=== PATIENT | male | born 1965 | race Caucasian/White ===

== ENCOUNTER 2018-11-10 04:04 | Emergency (ER) | payer OTHER ==
[~2018-11-10] VITALS: Ht 185.4 cm; Wt 110.4 kg
[2018-11-10 04:09] VITALS: Ht 185.4 cm; Wt 110.4 kg
[2018-11-10 05:57] VITALS: BP 165/103
== END 2018-11-10 05:57 | disposition home or self-care (01) ==
LOC: ED 04:04
DX: M54.5 Low back pain (principal); I10 Essential (primary) hypertension; G89.29 Other chronic pain; W45.8XXA Other foreign body or object entering through skin, initial encounter; Y93.89 Activity, other specified; Y92.89 Other specified places as the place of occurrence of the external cause; Y99.8 Other external cause status
CPT/HCPCS: J2270